=== PATIENT | female | born 1980 | race Caucasian/White ===

== ENCOUNTER 2021-01-23 17:50 | Emergency (ER) | payer OTHER, SELFPAY ==
--- NOTE | ~2021-01-23 | CT_ITS ---
EXAMINATION: CT ABDOMEN AND PELVIS WITHOUT CONTRAST CLINICAL INFORMATION: Right flank pain COMPARISON: None TECHNIQUE: Multidetector volumetric imaging was performed from the superior aspect of the liver through the pubic symphysis. Sagittal and coronal reformatted images were obtained on the technologist's workstation. This CT examination was performed using dose optimization techniques as appropriate, variously including the following: *Automated exposure control *Adjustment of mA and/or kV according to patient size (this includes techniques or standardized protocols for targeted exams where dose is matched to indication/reason for exam; i.e. extremities or head) *Use of iterative reconstruction technique DLP: 382 mGy-cm FINDINGS: LUNG BASES: There is platelike atelectasis in the lingula LIVER, GALLBLADDER, AND BILIARY TREE: The liver is normal in size, shape, and attenuation. No focal hepatic lesion or biliary ductal dilatation is present. The gallbladder is unremarkable with no evidence of radiopaque gallstones, gallbladder wall thickening, or obvious pericholecystic inflammatory changes. PANCREAS: Unremarkable. SPLEEN: Unremarkable. ADRENAL GLANDS: Unremarkable. KIDNEYS AND URETERS: The kidneys are normal in size, shape, and attenuation. No hydronephrosis, hydroureter, or calculi seen. No perinephric stranding. BLADDER: Unremarkable. GASTROINTESTINAL TRACT: There is scattered stool and gas seen throughout the colon without significant distention. The small bowel loops are normal caliber. Appendix is not visualized. However there is no inflammatory process in the right lower quadrant. ABDOMINAL WALL: No significant hernia is appreciated. LYMPH NODES: Normal. VASCULAR: Unremarkable. PELVIC VISCERA: The uterus is anteverted and appears unremarkable. There is no free fluid. No pelvic mass or lymphadenopathy seen. OSSEOUS STRUCTURES: Unremarkable. CT/CT abdomen pelvis wo con IMPRESSION: No acute intra-abdominal process seen. Mild constipation.
[2021-01-23 17:53] VITALS: BP 133/74; PULSE 93; RESP 16; TEMP 35.7; O2SAT 97; BMI 24.0
[2021-01-23 18:08] LABS: MANUAL DIFF FLAG NO
[2021-01-23 18:11] LABS: Basophils Absolute Auto 0.1 X10*3/uL (0.0-0.2); Basophils Percent Auto 0.5 % (0-2); Eosinophils Absolute Auto 0.2 X10*3/uL (0.0-0.4); Eosinophils Percent Auto 1.9 % (0-4); Hematocrit 38.3 % (37-47); Hemoglobin 12.8 g/dl (12.0-16.0); Imm Gran Abs Auto 0.02 X10*3/uL (0.00-0.03); Imm Gran Pct Auto 0.2 % (0.0-0.4); Lymphocytes Absolute Auto 2.9 X10*3/uL (1.2-4.9); Lymphocytes Percent Auto 29.3 % (20-40); Mean Corpuscular HGB Conc 33.4 g/dl (31.0-35.0); Mean Corpuscular Hemoglobin 32.7 pg (27.0-33.0); Mean Platelet Volume 9.2 fL (9.4-12.3); Monocytes Absolute Auto 0.5 X10*3/uL (0.1-1.2); Monocytes Percent Auto 4.5 % (2-11); Neutrophils Absolute Auto 6.3 X10*3/uL (2.0-8.3); Neutrophils Percent Auto 63.6 % (45-73); Platelet Count 327 X10*3/uL (160-400); Red Blood Count 3.91 X10*6/uL (4.20-5.50); Red Cell Distribution Width 12.5 % (11.0-16.0); White Blood Count 9.9 X10*3/uL (4.8-10.8)
[2021-01-23 18:20] LABS: Glucose Urine UA NEG (NEG); Leukocyte Esterase Urine NEG (NEG); Nitrite Urine NEG (NEG); Urine Blood NEG (NEG); Urine Ketones NEG (NEG); Urine Protein NEG (NEG-TRACE)
[2021-01-23 18:21] LABS: Appearance Urine CLOUDY; Color Urine YELLOW
[2021-01-23 18:38] LABS: Anion Gap 13 (12-20); Blood Urea Nitrogen 12 mg/dL (9-16); Calcium 9.1 mg/dL (8.4-10.2); Carbon Dioxide 26 mmol/L (22-29); Chloride 108 mmol/L (96-108); Creatinine Clr Calc Pharmacy 75.9; Estimated Glomerular Filt Rate > 60; Glucose Random 79 mg/dL (60-115); Potassium 3.5 mmol/L (3.3-5.1); Sodium 143 mmol/L (135-145)
[2021-01-23 19:39] LABS: Bacteria Urine 2+ /LPF; Mucus Urine 1+ /LPF; RBC Urine 0 /HPF (0); Squamous Epithelial Cell Urine 1+ /LPF; UACC CULT YES
--- NOTE | 2021-01-23 20:46 | ED_ITS ---
HPI - Abdominal Pain General Chief Complaint: Abdominal Pain Stated Complaint: R lower abd pain and back pain Time Seen by Provider: 01/23/21 20:44 Source: patient Mode of arrival: ambulatory Limitations: no limitations History of Present Illness MD elicited complaint: abdominal pain and flank pain Onset (ago): day(s) (2) Pain Consistency: constant Location: RLQ and R flank Severity: moderate Quality: stabbing Radiation: none Migration to: RLQ Exacerbating factors: movement Relieving factors: nothing Associated symptoms: other (urinary hesitancy) Related Data Home Medications Medication Instructions Recorded Confirmed norethindrone-e.estradiol-iron 1 tab PO DAILY 01/23/21 01/23/21 [Tilia Fe] Allergies Allergy/AdvReac Type Severity Reaction Status Date / Time acetaminophen [From PERCOCET] Allergy Intermediate HIVES Verified 01/23/21 21:24 oxycodone [Percocet] Allergy Unknown Unknown Verified 01/23/21 21:24 From PERCOCET Allergy Intermediate HIVES Uncoded 01/23/21 21:24 Review of Systems Review of Systems Constitutional : No Weight loss, No Fever, No Chills ENT/Mouth : No sore throat, No Rhinorrhea Eyes: No Swelling, No Redness Cardiovascular : No Chest Pain, No SOB, NoEdema Respiratory : No Cough, No Sputum, No Wheezing Gastrointestinal : no Nausea, no Vomiting, no Diarrhea, positive abdominal Pain, No Hematochezia, No Melena Genitourinary : No Dysuria, No Urinary Frequency, No Hematuria, No Urgency, pos hesitancy Musculoskeletal : No joint pain, No Myalgias, No Joint Swelling Skin : No Skin Lesions, No rash Neuro : No Weakness, No Numbness, No Dizziness, No Headache Psych : No Anxiety/Panic, No Depression Heme/Lymph: No Bruising, No Lymphadenopathy Endocrine : No Polyuria, No Polydipsia All other systems reviewed and are negative. Physical Exam Vital Signs: Vital Signs: Last Vital Signs Temp 96.3 F L 01/23/21 21:17 Pulse 93 01/23/21 21:17 Resp 16 01/23/21 21:17 BP 133/74 01/23/21 21:17 Pulse Ox 97 01/23/21 21:17 Body Mass Index 24.0 Appearance: Alert. Oriented X3. No acute distress. Eyes: Pupils equal, round and reactive to light. ENT: Pharynx normal. Neck: Normal inspection. Neck supple. CVS: Normal heart rate and rhythm. Pulses normal. Respiratory: No respiratory distress. Breath sounds normal. Abdomen: Soft and mild RLQ pain + R cva ttp Skin: Skin warm and dry. Normal skin color. Normal skin turgor. Extremities: No lower extremity edema. No calf ttp Neuro: Oriented X 3. No motor deficit. No sensory deficit. Course Course Course Narrative: signed out to Dr. Ramirez pending CT scan and workup MDM - Abdominal Pain MDM Narrative Medical decision making narrative: 40 yo female with RLQ pain and R flank pain already s/p appendectomy - at this time labs, UA, IV toradol, CT scan for renal colic orrdered, dispo per results and findings, Differential Diagnosis Differential diagnosis: Likely abdominal pain Lab Data Result diagrams: 01/23/21 18:01/23/21 18:01 Labs: Lab Results 01/23/21 01/23/21 01/23/21 Range/Units 18:01 18:01 18:11 WBC 9.9 (4.8-10.8) X10*3/uL RBC 3.91 L (4.20-5.50) X10*6/uL Hgb 12.8 (12.0-16.0) g/dl Hct 38.3 (37-47) % MCV 98.0 (80-98) fL MCH 32.7 (27.0-33.0) pg MCHC 33.4 (31.0-35.0) g/dl RDW 12.5 (11.0-16.0) % Plt Count 327 (160-400) X10*3/uL MPV 9.2 L (9.4-12.3) fL Immature Gran % (Auto) 0.2 (0.0-0.4) % Neut % (Auto) 63.6 (45-73) % Lymph % (Auto) 29.3 (20-40) % Bowman % (Auto) 4.5 (2-11) % Eos % (Auto) 1.9 (0-4) % Baso % (Auto) 0.5 (0-2) % Lymph # (Auto) 2.9 (1.2-4.9) X10*3/uL Bowman # (Auto) 0.5 (0.1-1.2) X10*3/uL Eos # (Auto) 0.2 (0.0-0.4) X10*3/uL Baso # (Auto) 0.1 (0.0-0.2) X10*3/uL Abs Immat Gran (auto) 0.02 (0.00-0.03) X10*3/uL Absolute Neuts (auto) 6.3 (2.0-8.3) X10*3/uL Absolute Nucleated RBC 0.000 (0.0-0.012) X10*3/uL Nucleated RBC % (auto) 0.0 (0.0-0.2) /100WBC Sodium 143 (135-145) mmol/L Potassium 3.5 (3.3-5.1) mmol/L Chloride 108 (96-108) mmol/L Carbon Dioxide 26 (22-29) mmol/L Anion Gap 13 (12-20) BUN 12 (9-16) mg/dL Creatinine 0.85 (0.5-1.4) mg/dL Estim Creat Clear Calc 75.9 Estimated GFR > 60 Random Glucose 79 (60-115) mg/dL Calcium 9.1 (8.4-10.2) mg/dL Urine Color YELLOW Urine Appearance CLOUDY Urine pH 8.0 (5.0-8.0) Ur Specific [place] 1.020 (1.005-1.025) Urine Protein NEG (NEG-TRACE) MG/DL Urine Glucose (UA) NEG (NEG) MG/DL Urine Ketones NEG (NEG) MG/DL Urine Blood NEG (NEG) Urine Nitrite NEG (NEG) Ur Leukocyte Esterase NEG (NEG) Urine RBC 0 (0) /HPF Urine WBC 5-9 H (0-4) /HPF Ur Squamous Epith Cells 1+ /LPF Urine Bacteria 2+ /LPF Urine Mucus 1+ /LPF Discharge Plan Discharge Prescriptions: No Action Tilia Fe 1-20(5)/1-30(7) /1mg-35mcg (9) tablet 1 tab PO DAILY RF: 0 PMFSH Past Medical History Attestation statement: The following information was validated with the patient. Medical History No active medical problems Surgical History (Updated 01/23/21 @ 21:27 by Padma Barrera DO) History of appendectomy Social History Social History Alcohol intake: current Alcohol intake frequency: holidays/special occasions on ly Smoking Status: Never smoker Use of substances other than those prescribed or required for medical reasons: Yes Substance Use Type: Hallucinogens and Marijuana Substance Use Frequency: Occasionally Last Used Substance: Unknown Advance Directives: No Advance Directives Information Provided: Yes Patient : No
[2021-01-23 21:17] VITALS: BP 133/74; PULSE 93; RESP 16; TEMP 35.7; O2SAT 97
[2021-01-23] MEDS: Ketorolac Tromethamine 30 MG/ML VIAL IVPUSH (21:27)
[2021-01-23] MEDS: Dicyclomine HCl 10 MG CAPSULE 20 MG PO (23:00)
== END 2021-01-23 22:58 | disposition home or self-care (01) ==
PROVIDERS: Emergency Provider Emergency Medicine
DX: R10.31 Right lower quadrant pain (principal); R11.2 Nausea with vomiting, unspecified; F32.9 Major depressive disorder, single episode, unspecified; F12.90 Cannabis use, unspecified, uncomplicated
CPT/HCPCS: 36415; 74176; 80048; 81001; 85025; 87086; 96374; 99284; 99285; J1885

== ENCOUNTER 2021-12-30 20:03 | Emergency (ER) | payer OTHER, SELFPAY ==
--- NOTE | ~2021-12-30 | XR_ITS ---
EXAMINATION: XR RIBS, RIGHT CLINICAL INFORMATION: Trauma COMPARISON: None TECHNIQUE: Frontal view of the chest and 3 oblique views of the right ribs were obtained. FINDINGS: Lungs are clear. No consolidation, pneumothorax, or pleural effusion. The cardiomediastinal silhouette and pulmonary vasculature are normal. On one oblique view, there is a suggestion of a very subtle nondisplaced fracture of the anterior right ninth rib. This is not able to be appreciated on the other obliquities. XR/XR ribs RT min 3V w CXR1V IMPRESSION: On one oblique view there is a suggestion of a subtle nondisplaced fracture of the anterior right ninth rib. This could be clinically correlated.
--- NOTE | ~2021-12-30 | CT_ITS ---
EXAMINATION: CT CHEST WITHOUT CONTRAST CLINICAL INFORMATION: Right-sided chest pain following trauma. COMPARISON: Right rib radiographs done earlier the same day. TECHNIQUE: Multidetector volumetric CT imaging of the chest was done. Axial MIP volume rendering provided. Sagittal and coronal reformatted images were obtained. This CT examination was performed using dose optimization techniques as appropriate, variously including the following: *Automated exposure control. *Adjustment of mA and/or kV according to patient size (this includes techniques or standardized protocols for targeted exams where dose is matched to indication/reason for exam; i.e. extremities or head). *Use of iterative reconstruction technique. DLP: 221 mGy-cm FINDINGS: TOP PRECIPITATOR OPERATOR HELPER: Unremarkable. LUNGS: There is a 0.2 cm noncalcified nodule within the right upper lobe (axial image 237/580). There is a 0.2 cm subpleural nodule along the right major fissure (axial image 235/580). There is a 0.3 cm subpleural nodule along the left major fissure (axial image 280/480). There is a 0.5 cm subpleural nodule along the left major fissure (axial image 224/580). There are a few additional 0.2 cm nodules. No large pulmonary mass or confluent airspace consolidation. The central airways are patent. MEDIASTINUM: The mediastinum is normal. PLEURA: There is no pleural effusion. No pleural mass or thickening. AXILLA: No lymphadenopathy. UPPER ABDOMEN: Unremarkable. OSSEOUS STRUCTURES: There is a subtle, nondisplaced anterior right 9th rib fracture (axial image 58/70, series 9). No additional fracture. No concerning lytic or blastic osseous lesion. CT/CT chest wo con IMPRESSION: 1. Subtle, nondisplaced anterior right 9th rib fracture. No additional fracture. 2. Multiple small bilateral noncalcified pulmonary nodules measuring up to 0.5 cm. According to the UPDATED 2017 Fleischner Society recommendations, the advised follow-up imaging for solid nodules < 6 mm is: LOW RISK PATIENT: No routine follow-up. HIGH RISK PATIENT: Optional CT at 12 months. Fleischner guidelines were followed.
[2021-12-30 20:33] VITALS: BP 133/66; PULSE 90; RESP 16; TEMP 36.6; O2SAT 100; BMI 24.7
[2021-12-30 21:57] LABS: UPreg QC Valid YES; Urine Pregnancy NEGATIVE (NEGATIVE)
[2021-12-30] MEDS: Lidocaine 4 % Patch ADH..PATCH 1 PATCH TRANSDERMA (22:36)
[2021-12-30] MEDS: Ketorolac Tromethamine 15 MG/ML VIAL IM (22:36)
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
[2021-12-30 23:23] VITALS: BP 111/70; PULSE 69; RESP 17; O2SAT 100
== END 2021-12-30 23:29 | disposition home or self-care (01) ==
PROVIDERS: Emergency Provider Student in an Organized Health Care Education/Training Program; PCP Internal Medicine
DX: S22.31XA Fracture of one rib, right side, initial encounter for closed fracture (principal); R07.89 Other chest pain; W03.XXXA Other fall on same level due to collision with another person, initial encounter; Y93.51 Activity, roller skating (inline) and skateboarding; Y92.9 Unspecified place or not applicable; Y99.9 Unspecified external cause status
CPT/HCPCS: 71101; 71250; 81025; 96372; 99283; 99284; J1885

== ENCOUNTER 2022-05-03 16:43 | Outpatient (REF) | payer OTHER, SELFPAY ==
[2022-05-03 17:33] LABS: Influenza A PCR NEGATIVE (Negative); Influenza B PCR NEGATIVE (Negative); Resp Syncy Virus RNA Qual PCR NEGATIVE (Negative); SARS COV2 PCR INHOUSE NEGATIVE (Negative)
== END 2022-05-03 16:44 | disposition home or self-care (01) ==
LOC: HO.LNP 16:43
DX: R53.81 Other malaise (principal); R53.83 Other fatigue; Z20.822 Contact with and (suspected) exposure to COVID-19
CPT/HCPCS: 0241U

== ENCOUNTER 2023-04-06 10:48 | Emergency (ER) | payer OTHER, SELFPAY ==
[2023-04-06 10:52] VITALS: BP 119/81; PULSE 90; RESP 18; TEMP 36.4; O2SAT 97; BMI 23.7
[2023-04-06 11:40] LABS: MANUAL DIFF FLAG NO
[2023-04-06] MEDS: Ondansetron ODT 4 MG TAB.RAPDIS TRANSLINGU (11:48)
[2023-04-06 11:55] LABS: Basophils Absolute Auto 0.1 X10*3/uL (0.0-0.2); Basophils Percent Auto 0.5 % (0-2); Eosinophils Absolute Auto 0.1 X10*3/uL (0.0-0.4); Eosinophils Percent Auto 0.5 % (0-4); Hematocrit 39.3 % (37.0-47.0); Hemoglobin 13.2 g/dl (12.0-16.0); Imm Gran Abs Auto 0.02 X10*3/uL (0.00-0.03); Imm Gran Pct Auto 0.2 % (0.0-0.4); Lymphocytes Absolute Auto 2.6 X10*3/uL (1.2-4.9); Lymphocytes Percent Auto 24.7 % (20-40); Mean Corpuscular HGB Conc 33.6 g/dl (31.0-35.0); Mean Corpuscular Hemoglobin 32.8 pg (27.0-33.0); Mean Corpuscular Volume 97.5 fL (80.0-98.0); Mean Platelet Volume 9.2 fL (9.4-12.3); Monocytes Absolute Auto 0.4 X10*3/uL (0.1-1.2); Monocytes Percent Auto 3.7 % (2-11); Neutrophils Absolute Auto 7.5 x10*3/uL (2.0-8.3); Neutrophils Percent Auto 70.4 % (45-73); Platelet Count 296 X10*3/uL (160-400); Red Blood Count 4.03 X10*6/uL (4.20-5.50); Red Cell Distribution Width 11.8 % (11.0-16.0); White Blood Count 10.7 X10*3/uL (4.8-10.8)
[2023-04-06 12:00] LABS: Appearance Urine Clear; Color Urine Yellow; Glucose Urine UA Negative (Negative); Leukocyte Esterase Urine Negative (Negative); Nitrite Urine Negative (Negative); Urine Blood Negative (Negative); Urine Ketones Negative (Negative); Urine Protein Negative (Neg-Trace)
[2023-04-06 12:00] LABS: Alanine Aminotransferase 15 U/L (0-31); Albumin Level 4.4 g/dL (3.5-5.0); Alkaline Phosphatase 33 U/L (39-117); Anion Gap 17 (12-20); Aspartate Amino Transferase 16 U/L (5-31); Bilirubin Total 0.3 mg/dL (0.0-1.0); Blood Urea Nitrogen 10 mg/dL (9-16); Calcium 9.1 mg/dL (8.4-10.2); Carbon Dioxide 19 mmol/L (22-29); Chloride 108 mmol/L (96-108); Creatinine Clr Calc Pharmacy 79.2; Estimated Glomerular Filt Rate > 60; Ethanol 101 mg/dL; Glucose Random 107 mg/dL (60-115); Potassium 3.7 mmol/L (3.3-5.1); Sodium 140 mmol/L (135-145); Total Protein 7.2 g/dL (6.5-8.0)
[2023-04-06 12:03] LABS: UPreg QC Valid YES; Urine Pregnancy NEGATIVE (NEGATIVE)
--- NOTE | 2023-04-06 12:04 | ED.GENADULT ---
HPI - General Adult General Chief complaint: Psychiatric Symptoms Stated complaint: crisis si thoughts Time Seen by Provider: 04/06/23 11:00 Source: patient and EMS Mode of arrival: EMS Limitations: no limitations History of Present Illness HPI narrative: 43-year-old female presents with psychological issues. Patient had some suicidal ideation no plan yesterday. Today she feels overwhelmed. Her son is homeless a non drugs. She is certainly concerned about him. She feels overwhelmed at work. Associated with anxiety and depression. Symptoms are severe. There is no clear relieving or exacerbating features. Patient drink a significant amount of alcohol last night. Typically she does not do any drugs, drink alcohol. patient denies previous psychiatric hospitalizations. Related Data Home Medications Medication Instructions Recorded Confirmed norethindrone-eth. estradiol-iron 1 tab PO DAILY 01/23/21 05/03/22 1-20 (5)/1-30(7)/1mg-35mcg(9) tablet (Tilia Fe) Previous Rx's Medication Instructions Recorded dicyclomine 20 mg tablet 20 mg PO QID PRN abdominal pain 01/23/21 #20 tabs ketorolac 10 mg tablet 10 mg PO Q6H PRN pain 5 days #20 12/30/21 tabs Allergies Allergy/AdvReac Type Severity Reaction Status Date / Time oxycodone Allergy Hives Verified 04/06/23 10:56 Review of Systems Review of Systems: CONSTITUTIONAL: Denies weight loss, fever and chills. HEENT: Denies changes in vision and hearing. RESPIRATORY: Denies SOB and cough. CV: Denies palpitations no CP. GI: Denies abdominal pain, nausea, vomiting and diarrhea. : Denies dysuria and urinary frequency. MSK: Denies myalgia and joint pain. SKIN: Denies rash and pruritus. NEUROLOGICAL: Denies headache and syncope. PSYCHIATRIC: See HPI All other ROS are negative unless in HPI PMFSH Past Medical History Medical History Fatigue No active medical problems Surgical History History of appendectomy Social History Social History Alcohol intake: current Alcohol intake frequency: holidays/special occasions only Substance Use Type: Hallucinogens and Marijuana Advance Directives: No Advance Directives Information Provided: No Healthcare Proxy: No Guardian: No Physical Exam ED Vital Signs: Vital Signs - 24 hr 04/06/23 10:52 Temperature 97.6 F Pulse Rate 90 Respiratory Rate 18 Blood Pressure 119/81 Pulse Oximetry 97 Oxygen Delivery Method Room Air BMI result Body Mass Index 23.7 GEN: Well developed, no acute distress, alert, oriented HEENT: Normocephalic, atraumatic, normal external ears, nose appears normal, no oropharyngeal edema or exudates Eyes: Normal to appearance Neck: Supple, no lymphadenopathy Respiratory: Talks in complete sentences, no respiratory distress, clear to auscultation bilaterally Cardiovascular: Regular rate and rhythm, no murmurs rubs or gallops Abdomen: Soft, nontender, nondistended, no guarding, no rebound Back: No CVA tenderness Extremities: No clubbing cyanosis or edema Neurologic: No focal neurologic deficits, cranial nerves 2-12 intact, strength is 5/5 bilaterally Skin: No rash Course Reevaluation(s) Reevaluation #1: patient is medically clear for psychiatric evaluation. Will place patient in physician observation at this time. Time: 12:07 Reevaluation #2: patient to go to respite care Time: 14:02 Reevaluation #3: Patient will be signed out to the oncoming provider for o'clock. Disposition pending bed placement for respite care. Time: 16:12 Medications Administered Discontinued Medications Generic Name Dose Route Start Last Admin Trade Name Freq PRN Reason Stop Dose Admin Hydroxyzine HCl 25 mg 04/06/23 12:16 04/06/23 12:24 Hydroxyzine Hcl 25 Mg Tablet PO 04/06/23 12:17 25 mg ONCE ONE Administration Ondansetron HCl 4 mg 04/06/23 11:45 04/06/23 11:48 Ondansetron Odt 4 Mg Tab.Rapdis TRANSLINGU 04/06/23 11:46 4 mg ONCE ONE Administration Medical Decision Making Medical Decision Making MDM Narrative: Patient presents with psychological issues. Differential diagnosis includes diet depression, anxiety, bipolar disorder, mood disorder, stew stress reactions, adjustment reaction. Plan will be to medically clear the patient and have her evaluated by our care team. Differential Diagnosis Differential Diagnoses: The differential diagnosis associated with the presentation includes ( See above) Admission/Observation Consideration of admission/observation: Escalation of care including admission/observation considered Lab Data 04/06/23 11:35 04/06/23 11:35 Labs: Lab Results 04/06/23 04/06/23 04/06/23 Range/Units 11:35 11:35 11:35 WBC 10.7 (4.8-10.8) X10*3/uL RBC 4.03 L (4.20-5.50) X10*6/uL Hgb 13.2 (12.0-16.0) g/dl Hct 39.3 (37.0-47.0) % MCV 97.5 (80.0-98.0) fL MCH 32.8 (27.0-33.0) pg MCHC 33.6 (31.0-35.0) g/dl RDW 11.8 (11.0-16.0) % Plt Count 296 (160-400) X10*3/uL MPV 9.2 L (9.4-12.3) fL Immature Gran % (Auto) 0.2 (0.0-0.4) % Neut % (Auto) 70.4 (45-73) % Lymph % (Auto) 24.7 (20-40) % Reeves % (Auto) 3.7 (2-11) % Eos % (Auto) 0.5 (0-4) % Baso % (Auto) 0.5 (0-2) % Lymph # (Auto) 2.6 (1.2-4.9) X10*3/uL Reeves # (Auto) 0.4 (0.1-1.2) X10*3/uL Eos # (Auto) 0.1 (0.0-0.4) X10*3/uL Baso # (Auto) 0.1 (0.0-0.2) X10*3/uL Abs Immat Gran (auto) 0.02 (0.00-0.03) X10*3/uL Absolute Neuts (auto) 7.5 (2.0-8.3) x10*3/uL Absolute Nucleated RBC 0.000 (0.0-0.012) X10*3/uL Nucleated RBC % (auto) 0.0 (0.0-0.2) /100WBC Sodium 140 (135-145) mmol/L Potassium 3.7 (3.3-5.1) mmol/L Chloride 108 (96-108) mmol/L Carbon Dioxide 19 L (22-29) mmol/L Anion Gap 17 (12-20) BUN 10 (9-16) mg/dL Creatinine 0.79 (0.5-1.4) mg/dL Estim Creat Clear Calc 79.2 Estimated GFR > 60 Random Glucose 107 (60-115) mg/dL Calcium 9.1 (8.4-10.2) mg/dL Total Bilirubin 0.3 (0.0-1.0) mg/dL AST 16 (5-31) U/L ALT 15 (0-31) U/L Alkaline Phosphatase 33 L (39-117) U/L Total Protein 7.2 (6.5-8.0) g/dL Albumin 4.4 (3.5-5.0) g/dL Urine Color Urine Appearance Urine pH (5.0-9.0) Ur Specific [place] (1.005-1.025) Urine Protein (Neg-Trace) mg/dL Urine Glucose (UA) (Negative) mg/dL Urine Ketones (Negative) mg/dL Urine Blood (Negative) Urine Nitrite (Negative) Ur Leukocyte Esterase (Negative) Urine Test (NEGATIVE) Urine Opiates Screen (Not Detect) Urine Fentanyl Screen (Not Detect) Ur Barbiturates Screen (Not Detect) Ur Phencyclidine Scrn (Not Detect) Ur Amphetamines Screen (Not Detect) U Benzodiazepines Scrn (Not Detect) Urine Cocaine Screen (Not Detect) U Marijuana (THC) Screen (Not Detect) Ethyl Alcohol 101 mg/dL COVID-19 (JAS) Negative (Negative) COVID-19 Clin Com See Note 04/06/23 04/06/23 04/06/23 Range/Units 11:35 11:36 11:36 WBC (4.8-10.8) X10*3/uL RBC (4.20-5.50) X10*6/uL Hgb (12.0-16.0) g/dl Hct (37.0-47.0) % MCV (80.0-98.0) fL MCH (27.0-33.0) pg MCHC (31.0-35.0) g/dl RDW (11.0-16.0) % Plt Count (160-400) X10*3/uL MPV (9.4-12.3) fL Immature Gran % (Auto) (0.0-0.4) % Neut % (Auto) (45-73) % Lymph % (Auto) (20-40) % Reeves % (Auto) (2-11) % Eos % (Auto) (0-4) % Baso % (Auto) (0-2) % Lymph # (Auto) (1.2-4.9) X10*3/uL Reeves # (Auto) (0.1-1.2) X10*3/uL Eos # (Auto) (0.0-0.4) X10*3/uL Baso # (Auto) (0.0-0.2) X10*3/uL Abs Immat Gran (auto) (0.00-0.03) X10*3/uL Absolute Neuts (auto) (2.0-8.3) x10*3/uL Absolute Nucleated RBC (0.0-0.012) X10*3/uL Nucleated RBC % (auto) (0.0-0.2) /100WBC Sodium (135-145) mmol/L Potassium (3.3-5.1) mmol/L Chloride (96-108) mmol/L Carbon Dioxide (22-29) mmol/L Anion Gap (12-20) BUN (9-16) mg/dL Creatinine (0.5-1.4) mg/dL Estim Creat Clear Calc Estimated GFR Random Glucose (60-115) mg/dL Calcium (8.4-10.2) mg/dL Total Bilirubin (0.0-1.0) mg/dL AST (5-31) U/L ALT (0-31) U/L Alkaline Phosphatase (39-117) U/L Total Protein (6.5-8.0) g/dL Albumin (3.5-5.0) g/dL Urine Color Yellow Urine Appearance Clear Urine pH 6.0 (5.0-9.0) Ur Specific [place] 1.020 (1.005-1.025) Urine Protein Negative (Neg-Trace) mg/dL Urine Glucose (UA) Negative (Negative) mg/dL Urine Ketones Negative (Negative) mg/dL Urine Blood Negative (Negative) Urine Nitrite Negative (Negative) Ur Leukocyte Esterase Negative (Negative) Urine Test NEGATIVE (NEGATIVE) Urine Opiates Screen Not Detected (Not Detect) Urine Fentanyl Screen Not Detected (Not Detect) Ur Barbiturates Screen Not Detected (Not Detect) Ur Phencyclidine Scrn Not Detected (Not Detect) Ur Amphetamines Screen Not Detected (Not Detect) U Benzodiazepines Scrn Not Detected (Not Detect) Urine Cocaine Screen Not Detected (Not Detect) U Marijuana (THC) Screen Not Detected (Not Detect) Ethyl Alcohol mg/dL COVID-19 (JAS) (Negative) COVID-19 Clin Com Discharge Plan Discharge Clinical Impression: Acute stress reaction Patient Disposition: Still a Patient Prescriptions: No Action Tilia Fe 1-20(5)/1-30(7) /1mg-35mcg (9) tablet 1 tab PO DAILY dicyclomine 20 mg tablet 20 mg PO QID PRN (Reason: abdominal pain) Qty: 20 0RF ketorolac 10 mg tablet 10 mg PO Q6H PRN (Reason: pain) 5 Days Qty: 20 0RF Rx Instructions: Patient received Toradol in the emergency room
[2023-04-06 12:08] LABS: Amphetamine Screen Urine Not Detected (Not Detect); Barbiturates, Urine Not Detected (Not Detect); Benzodiazepines Screen Urine Not Detected (Not Detect); Cannabinoid Screen Urine Not Detected (Not Detect); Cocaine Screen Urine Not Detected (Not Detect); Fentanyl, urine Not Detected (Not Detect); Opiate Screen Urine Not Detected (Not Detect); Phencyclidine Screen Urine Not Detected (Not Detect)
[2023-04-06 12:14] LABS: COVID-19 Test Negative (Negative); IDNOW Serial# 08D9AD1C
[2023-04-06] MEDS: hydrOXYzine HCL 25 MG TABLET PO (12:24)
--- NOTE | 2023-04-06 12:45 | PC.NURSE ---
CARE TEAM AT THE BEDSIDE FOR ASSESSMENT. SHE WAS MEDICATED FOR STATED ANXIETY
--- NOTE | 2023-04-06 16:00 | MHC.CARE ---
Pt referred to [facility] respite. Pending review
[2023-04-06] MEDS: Acetaminophen 325 MG TABLET 650 MG PO (16:40)
[2023-04-06 16:41] VITALS: BP 128/76; PULSE 84; RESP 17; TEMP 36.2; O2SAT 100
[2023-04-06] MEDS: Ibuprofen 400 MG TABLET PO (16:41)
--- NOTE | 2023-04-06 16:42 | MHC.EDTECH ---
vs taken. pt provided with warm blanket, crackers, and barry jeannine
--- NOTE | 2023-04-06 17:35 | PC.NURSE ---
RESPITE BED IN [facility] WAS OBTAINED BY CARE TEAM, PT CLEARED TO TRANSPORT HERSELF.
== END 2023-04-06 17:40 ==
PROVIDERS: Emergency Medicine; Emergency Provider Emergency Medicine
DX: F43.0 Acute stress reaction (principal); R45.851 Suicidal ideations; F41.9 Anxiety disorder, unspecified; F32.A Depression, unspecified; F12.90 Cannabis use, unspecified, uncomplicated; Z79.899 Other long term (current) drug therapy; Z20.822 Contact with and (suspected) exposure to COVID-19
CPT/HCPCS: 80053; 80307; 81003; 81025; 85025; 87635; 99284; 99285; S9485

== ENCOUNTER 2023-08-25 00:37 | Emergency (ER) | payer OTHER, SELFPAY ==
--- NOTE | ~2023-08-25 | XR_ITS ---
EXAMINATION: XR FACIAL BONES CLINICAL INFORMATION: Injury COMPARISON: None available. TECHNIQUE: 3 views of the facial bones were obtained. FINDINGS: There are no fractures or dislocations. No bone, joint or soft tissue abnormality is demonstrated. XR/XR facial bones min 3V IMPRESSION: No acute fractures.
--- NOTE | ~2023-08-25 | CT_ITS ---
EXAMINATION: NONCONTRAST HEAD CT NONCONTRAST MAXILLOFACIAL CT NONCONTRAST CERVICAL SPINE CT INDICATION INFORMATION: Trauma COMPARISON: None TECHNIQUE: Separate noncontrast CT examinations of the head, maxillofacial bones, and cervical spine were performed. Coronal and sagittal images were created for each examination at the technologist workstation. This CT examination was performed using dose optimization techniques as appropriate, variously including the following: *Automated exposure control *Adjustment of mA and/or kV according to patient size (this includes techniques or standardized protocols for targeted exams where dose is matched to indication/reason for exam; i.e. extremities or head) *Use of iterative reconstruction technique DLP: 1055 mGy-cm FINDINGS: Head: There is no evidence of acute intracranial hemorrhage or territorial infarction. No abnormal mass effect or midline shift is seen. De La Cruz to white matter differentiation is well preserved. No extra-axial fluid collections are identified. No hydrocephalus. No significant volume loss. There is no abnormal attenuation within the brain parenchyma. No acute soft tissue abnormality. No calvarial fracture. The mastoid air cells are well aerated. Maxillofacial: No acute maxillofacial fractures are seen. The pterygoid plates are intact. The lamina papyracea are intact. The zygomatic arches are intact. The orbital rims are intact. Mandible and temporomandibular joints are intact. The frontal, maxillary, ethmoid, and sphenoid sinuses are well aerated. The uncinate process is normal bilaterally. The infundibula and middle meati are patent. Small leftward projecting osseous nasal septal spur. Minimal leftward osseous nasal septal deviation on a chronic basis. The orbits demonstrate a normal appearance bilaterally. The globes are intact, and there are no suspicious findings to suggest retrobulbar hemorrhage. Soft tissues unremarkable. Cervical spine: No acute fracture or traumatic malalignment. Mild cervical kyphosis. The atlantoaxial and atlantooccipital articulations are intact. Vertebral body heights are maintained. End plate osteophytes and loss of disc space height present from C3-C6. Paraspinal soft tissues unremarkable. Imaged lungs are clear. The thyroid gland is unremarkable. CT/CT cervical spine wo IV con IMPRESSION: 1. No acute intracranial findings. 2. No acute maxillofacial fracture. 3. No acute fracture or malalignment of the cervical spine.
[2023-08-25 00:39] VITALS: BP 135/84; PULSE 73; RESP 18; TEMP 36.3; O2SAT 100; BMI 25.4
[2023-08-25 01:09] VITALS: BP 131/77; PULSE 66; RESP 18; TEMP 36.8; O2SAT 100
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
[2023-08-25 02:49] VITALS: BP 119/63; PULSE 71; RESP 16; TEMP 36.7; O2SAT 100
== END 2023-08-25 02:59 | disposition home or self-care (01) ==
PROVIDERS: Emergency Provider Emergency Medicine; PCP Physician Assistant
DX: S00.83XA Contusion of other part of head, initial encounter (principal); M54.2 Cervicalgia; W03.XXXA Other fall on same level due to collision with another person, initial encounter; Y93.9 Activity, unspecified; Y92.9 Unspecified place or not applicable; Y99.9 Unspecified external cause status
CPT/HCPCS: 70150; 70450; 70486; 72125; 99284

== ENCOUNTER 2024-12-11 04:43 | Emergency (ER) | payer OTHER, SELFPAY ==
--- NOTE | ~2024-12-11 | CT_ITS ---
CLINICAL HISTORY: headache CT head without contrast Comparison: CT/SR - CT HEAD/BRAIN WO IV CON - 08/25/23 01:30 EST Findings: No intra-axial mass, midline shift, hydrocephalus, or acute hemorrhage. No significant atrophy-like change or white matter disease. The visualized paranasal sinuses and mastoid air cells are normal. The orbits are within normal limits. There is no acute fracture. IMPRESSION: 1. No acute intracranial findings. This document has been electronically signed by: Ar Curry MD on 12/11/2024 06:35:58
[2024-12-11 04:47] VITALS: BP 123/78; PULSE 82; RESP 16; TEMP 36.2; O2SAT 99; BMI 24.7
[2024-12-11 07:14] VITALS: BP 141/80; PULSE 72; RESP 14; TEMP 37.1; O2SAT 99
[2024-12-11 07:29] LABS: MANUAL DIFF FLAG NO
[2024-12-11 07:32] LABS: Basophils Absolute Auto 0.1 X10*3/uL (0.0-0.2); Basophils Percent Auto 0.5 % (0-2); Eosinophils Absolute Auto 0.2 X10*3/uL (0.0-0.4); Eosinophils Percent Auto 1.7 % (0-4); Hematocrit 38.8 % (37.0-47.0); Hemoglobin 13.2 g/dl (12.0-16.0); Imm Gran Abs Auto 0.04 X10*3/uL (0.00-0.03); Imm Gran Pct Auto 0.4 % (0.0-0.4); Lymphocytes Absolute Auto 3.4 X10*3/uL (1.2-4.9); Lymphocytes Percent Auto 36.2 % (20-40); Mean Corpuscular Hemoglobin 32.4 pg (27.0-33.0); Mean Corpuscular Volume 95.3 fL (80.0-98.0); Monocytes Absolute Auto 0.6 X10*3/uL (0.1-1.2); Monocytes Percent Auto 5.9 % (2-11); Neutrophils Absolute Auto 5.2 x10*3/uL (2.0-8.3); Neutrophils Percent Auto 55.3 % (45-73); Platelet Count 340 X10*3/uL (160-400); Red Blood Count 4.07 X10*6/uL (4.20-5.50); Red Cell Distribution Width 12.2 % (11.0-16.0); White Blood Count 9.3 X10*3/uL (4.8-10.8)
[2024-12-11 07:50] LABS: Alanine Aminotransferase 16 U/L (0-31); Alkaline Phosphatase 45 U/L (39-117); Anion Gap 13 (12-20); Aspartate Amino Transferase 17 U/L (5-31); Bilirubin Total 0.2 mg/dL (0.0-1.0); Blood Urea Nitrogen 14 mg/dL (9-16); Calcium 9.1 mg/dL (8.4-10.2); Carbon Dioxide 23 mmol/L (22-29); Chloride 106 mmol/L (96-108); Creatinine Clr Calc Pharmacy 89.8; Estimated Glomerular Filt Rate > 60; Glucose Random 110 mg/dL (60-115); Sodium 138 mmol/L (135-145); Total Protein 6.9 g/dL (6.5-8.0)
--- OUTSIDE RECORDS SUMMARY | 2024-12-11 07:55 | XMS_ITS | Clinical Summary ---
Author Organization [facility] it Address [address] [place] [address] Care Team Providers Care Head Librarian Name Role Phone Akiko Guerra MD Primary Care Provider [phone] Allergies Active Allergy Reactions Criticality Noted Date Comments Oxycodone Dizziness 04/18/2016 Apap-Fd&C Red #40 Al Richards-Oxycodone Other Reaction(s): Hives/Urticaria Medications FLUoxetine (PROzac) 10 mg tablet Take 1 tablet (10 mg total) by mouth 1 (one) time each day. 05/13/2023 Active Active Problems Problem Noted Date Diagnosed Date Neck pain 08/20/2024 Anxiety 04/18/2016 Depression 04/18/2016 Encounters Date Type Department Care Team Description 11/20/2024 Telephone Adult Medicine [address] [phone] No Castillo RN 11/17/2024 Telephone Adult Medicine [address] [phone] Akiko Guerra MD Return to Work; Covid-19 from Last 3 Months Immunizations Name Administration Dates Next Due Moderna SARS-CoV-2 COVID-19, mRNA, LNP-S, preservative free 02/09/2022,01/12/2022 Tdap Tetanus diptheria acell ular pertussis (Boostrix; Adacel) 7yo and older 04/04/2022 Surgical History Surgery Date Site/Laterality Comments APPENDECTOMY 1985 PROCEDURE: HISTORICAL APPENDECTOMY SECTION 1998, 2012 PROCEDURE: HISTORICAL Medical History Medical History Date Comments Anxiety 04/18/2016 DX:Anxiety Depression 04/18/2016 DX:Depression Neck pain DX:Neck pain Family History Medical History Relation Name Comments Diabetes Father Colon cancer Maternal Grandfather Relation Name Status Comments Father Maternal Grandfather Social History Tobacco Use Types Packs/Day Years Used Date Smoking Tobacco: Some Days Cigarettes Smokeless Tobacco: Never Alcohol Use Standard Drinks/Week Comments Yes 0 (1 standard drink = 0.6 oz pur e alcohol) Comments Unknown Sex and Gender Information Value Date Recorded Sex Assigned at Not on file Legal Sex Female 1:45 PM EST Gender Identity Not on file Sexual Orientation Not on file Obstetrics History Last Filed Vital Signs Vital Sign Reading Time Taken Comments Blood Pressure 110/72 05/13/2023 3:48 PM EDT C Pulse 72 05/13/2023 3:48 PM EDT Temperature - - Respiratory Rate - - Oxygen Saturation - - Inhaled Oxygen Concentration - - Weight 64 kg (141 lb) 05/13/2023 3:48 PM EDT Height 162.6 cm (5' 4 ) 04/04/2022 11:21 AM EDT Body Mass Index 24.2 04/04/2022 11:21 AM EDT Plan of Treatment Upcoming Encounters Date Type Department Care Team (Late st Contact Info) Description 06/04/2025 9:00 AM EDT Office Visit Adult Medicine [facility] [address] [place] [phone] Akiko Guerra MD [address] [place] [address] Health Maintenance Due Date Last Done Comments Breast Cancer Screening 1980 Hepatitis B Vaccines (1 of 3 - 19+ 3-dose series) 02/04/1999 Pneumococcal Vaccine: Pediatrics (0 to 5 Years) and At-Risk Patients (6 to 64 Years) (1 of 2 - PCV) 02/04/1999 Cervical Cancer Screening: P ap Smear 02/04/2001 Depression Screening 07/31/2022 HIV Screening 07/31/2022 Hepatitis C Screening 07/31/2022 Social Influencers of Health Screening 07/31/2022 COVID-19 Vaccine (3 - 2023-2 5 season) 2024 02/09/2022, 01/12/2022 Influenza Vaccine (Season Ended) 2025 DTaP,Tdap,and Td Vaccines (2 - Td or Tdap) 04/04/2032 04/04/2022 HIB Vaccines Aged Out No longer eligi ble based on patient's age to complete this topic HPV Vaccines Aged Out No longer eligi ble based on patient's age to complete this topic Hepatitis A Vaccines Aged Out No long er eligible based on patient's age to complete this topic IPV Vaccines Aged Out No longer eligi ble based on patient's age to complete this topic MMR Vaccines Aged Out No longer eligi ble based on patient's age to complete this topic Meningococcal ACWY Vaccine Aged Out N o longer eligible based on patient's age to complete this topic Meningococcal B Vaccine Aged Out No l onger eligible based on patient's age to complete this topic RSV Immunization Patients Under 20 months Aged Out No longer eligible b ased on patient's age to complete this topic Varicella Vaccines Aged Out No longer eligible based on patient's age to complete this topic [place] [address] [address] [address] PLAN Care Teams Head Librarian Relationship Specialty Start Date End Date Akiko Guerra MD [address] [place] [address] PCP - General Internal Medicine 04/11/21
--- NOTE | 2024-12-11 08:01 | PC.NURSE ---
pt is alert and oriented, skin pwd, respirations even and unlabored, pt reports that started with a right sided headache yesterday around 1600, taking Excedrin not improving, pt denies light and noise sensitivity, denies nausea and vision disturbances , pt does report hx of migraines but has not had one for the last 6-7 years, offered to do a sars swab just to r/o but pt did not want one at this time-states i don't believe i have covid
[2024-12-11 08:10] VITALS: BP 111/56; PULSE 73; RESP 14; TEMP 37.1; O2SAT 98
[2024-12-11] MEDS: Butalb/Acetamin/Caff 50/325/40 TABLET 1 TAB PO (09:10)
[2024-12-11] MEDS: diphenhydrAMINE HCL 50 MG/ML VIAL 12.5 MG IVPUSH (09:15)
[2024-12-11] MEDS: Ketorolac Tromethamine 15 MG/ML VIAL IVPUSH (09:15)
[2024-12-11] MEDS: Metoclopramide HCl 10 MG/2 ML VIAL IVPUSH (09:15)
[2024-12-11 09:20] LABS: C Reactive Protein 0.53 mg/dL (< or = 0.50); Magnesium 1.7 mg/dL (1.6-2.6)
--- NOTE | 2024-12-11 09:25 | ED_ITS ---
HPI - Headache General Chief Complaint: Headache Stated Complaint: migraine Time Seen by Provider: 12/11/24 08:04 Source: patient, RN notes reviewed and old records reviewed Mode of arrival: ambulatory History of Present Illness ED Provider: Ashley Krishna PA-C HPI Narrative: 44-year-old female with no significant past medical history presenting to the ED complaining of right temporal headache since 1600 yesterday. Admits to taking OTC medications without relief. Reports history of migraines however not this severe. Denies other associated symptoms including neck/back pain, vision change or loss, nausea, vomiting, weakness, paresthesias, jaw pain. Denies pain exacerbated by eating, temperature or showers. Related Data Home Medications ?Medication ?Instructions ?Recorded ?Confirmed norethindrone-eth. estradiol-iron 1 tab PO DAILY 01/23/21 05/03/22 1-20 (5)/1-30(7)/1mg-35mcg(9) tablet (Tilia Fe) Previous Rx's ?Medication ?Instructions ?Recorded dicyclomine 20 mg tablet 20 mg PO QID PRN abdominal pain 01/23/21 #20 tabs ketorolac 10 mg tablet 10 mg PO Q6H PRN pain 5 days #20 12/30/21 tabs rnmjwxqczl-nhlpwkvinmynz-zwqhaipe 1 cap PO Q4-6H PRN headache #10 12/11/24 50 mg-300 mg-40 mg capsule caps (Fioricet) Allergies Allergy/AdvReac Type Severity Reaction Status Date / Time oxycodone Allergy Hives Verified 12/11/24 04:48 Review of Systems 2 Review of Systems: Yes all other systems are reviewed and are negative Constitutional: Constitutional: Reports as per [facility] Past Medical History Attestation statement: The following information was validated with the patient. Source: old records reviewed Medical History Fatigue No active medical problems Surgical History History of appendectomy Social History Social History Alcohol intake: never Smoked in Last 30 Days: No Use of substances other than those prescribed or required for medical reasons: No Substance Use Type: Hallucinogens and Marijuana Advance Directives: No Advance Directives Information Provided: Yes Do you have a plan to hurt others: No Plan Physical Exam 2 Vital Signs: Vital Signs: Last Vital Signs Temp 97.8 F 12/11/24 10:41 Pulse 70 12/11/24 10:41 Resp 14 12/11/24 10:41 BP 111/72 12/11/24 10:41 Pulse Ox 99 12/11/24 10:41 O2 Del Method Room Air 12/11/24 10:41 BMI result Body Mass Index 24.7 Const: General: cooperative, healthy appearing and no acute distress O rientation/consciousness: patient oriented x3 Limitations: no limitations HEENT: Head: Yes normal to inspection and Yes atraumatic Ears: hearing grossly normal bilaterally General nose exam: Normal external nose present Face and sinus: Yes normal facial exam Eyes: General: appearance normal, both eyes and all related structures EOM: EOMs intact bilaterally Neck: Neck: Yes normal visual inspection and Yes no meningeal signs Resp: Effort & Inspection: normal respiratory effort and no respiratory distress Auscultation: clear to auscultation bilaterally Cardio: Rate: regular rate Heart sounds: S1 normal heart sound present and S2 normal heart sound present GI: Inspection: Yes normal to inspection Palpation (GI): Soft to palpation, nontender, no guarding and not rigid : General: Yes no CVA tenderness Back/Spine/Pelvis: Back: no CVA tenderness Skin: Rashes: no rashes Wounds: no wounds Neuro: General: patient oriented x3, tone normal and no meningeal signs C ranial nerves: Yes CN's II-XII intact bilaterally Gait exam (Neuro): Normal gait present Extrem: General: Yes normal to inspection Course Course Course Narrative: - Labs reassuring. CRP minimally elevated to 0.53 > not consistent with giant cell arteritis - viral testing negative - head CT unremarkable > 1029- patient reports symptomatic improvement, denies headache at present. States Fioricet runs help symptoms. Requesting discharge home at this time. Recommended close PCP follow-up Results discussed with patient including worrisome signs and symptoms and strict return precautions, and when to return to the emergency department. They verbalized understanding and feel safe for discharge at this time. Medications Administered Discontinued Medications Generic Name Dose Route Start Last Admin Trade Name Freq PRN Reason Stop Dose Admin Acetaminophen/Butalbital/Caffeine 1 tab 12/11/24 08:52 12/11/24 09:10 Butalb/Acetamin/Caff 50/325/40 Tablet PO 12/11/24 08:53 1 tab ONCE ONE Administration Diphenhydramine HCl 12.5 mg 12/11/24 08:53 12/11/24 09:15 Diphenhydramine Hcl 50 Mg/Ml Vial IVPUSH 12/11/24 08:54 12.5 mg ONCE ONE Administration Ketorolac Tromethamine 15 mg 12/11/24 08:53 12/11/24 09:15 Ketorolac Tromethamine 15 Mg/Ml Vial IVPUSH 12/11/24 08:54 15 mg ONCE ONE Administration Metoclopramide HCl 10 mg 12/11/24 08:53 12/11/24 09:15 Metoclopramide Hcl 10 Mg/2 Ml Vial IVPUSH 12/11/24 08:54 10 mg ONCE ONE Administration Medical Decision Making Medical Decision Making MDM Narrative: 44-year-old female with no significant past medical history presenting to the ED complaining of right temporal headache since 1600 yesterday. on exam vital signs stable, NAD, nontoxic appearing, no focal neuro deficits. Concern for migraine headache vs ? giant cell arteritis. No evidence of otitis media / externa or mastoiditis. No evidence of intraoral pathology/ dental issues, DIRECTOR OF PLACEMENT or retropharyngeal abscess Plan: Labs, head CT, viral testing, p.o. Fioricet, re-evaluate Please refer to course for remaining clinical decision making, interpretation of labs/imaging results, and discussions with consultants and/or family members. Differential Diagnosis Differential Diagnoses: The differential diagnosis associated with the presentation includes As above Admission/Observation Consideration of admission/observation: Escalation of care including admission/observation considered Lab Data [facility] Lab Attestation statement: I reviewed the patient's lab results. 12/11/24 07:10 12/11/24 07:10 Labs: Lab Results 12/11/24 12/11/24 Range/Units 07:10 08:57 WBC 9.3 (4.8-10.8) X10*3/uL RBC 4.07 L (4.20-5.50) X10*6/uL Hgb 13.2 (12.0-16.0) g/dl Hct 38.8 (37.0-47.0) % MCV 95.3 (80.0-98.0) fL MCH 32.4 (27.0-33.0) pg MCHC 34.0 (31.0-35.0) g/dl RDW 12.2 (11.0-16.0) % Plt Count 340 (160-400) X10*3/uL MPV 9.0 L (9.4-12.3) fL Immature Gran % (Auto) 0.4 (0.0-0.4) % Neut % (Auto) 55.3 (45-73) % Lymph % (Auto) 36.2 (20-40) % Quay % (Auto) 5.9 (2-11) % Eos % (Auto) 1.7 (0-4) % Baso % (Auto) 0.5 (0-2) % Lymph # (Auto) 3.4 (1.2-4.9) X10*3/uL Quay # (Auto) 0.6 (0.1-1.2) X10*3/uL Eos # (Auto) 0.2 (0.0-0.4) X10*3/uL Baso # (Auto) 0.1 (0.0-0.2) X10*3/uL Abs Immat Gran (auto) 0.04 H (0.00-0.03) X10*3/uL Absolute Neuts (auto) 5.2 (2.0-8.3) x10*3/uL Absolute Nucleated RBC 0.000 (0.0-0.012) X10*3/uL Nucleated RBC % (auto) 0.0 (0.0-0.2) /100WBC ESR 8 (0-20) MM/HR Sodium 138 (135-145) mmol/L Potassium 4.0 (3.3-5.1) mmol/L Chloride 106 (96-108) mmol/L Carbon Dioxide 23 (22-29) mmol/L Anion Gap 13 (12-20) BUN 14 (9-16) mg/dL Creatinine 0.69 (0.5-1.4) mg/dL Estim Creat Clear Calc 89.8 Estimated GFR > 60 Random Glucose 110 (60-115) mg/dL Calcium 9.1 (8.4-10.2) mg/dL Magnesium 1.7 (1.6-2.6) mg/dL Total Bilirubin 0.2 (0.0-1.0) mg/dL AST 17 (5-31) U/L ALT 16 (0-31) U/L Alkaline Phosphatase 45 (39-117) U/L C-Reactive Protein 0.53 H (< or = 0.50) mg/dL Total Protein 6.9 (6.5-8.0) g/dL Albumin 4.0 (3.5-5.0) g/dL Influenza Type A (PCR) NEGATIVE (Negative) Influenza Type B (PCR) NEGATIVE (Negative) RSV RNA Qual (PCR) NEGATIVE (Negative) SARS-CoV-2 RNA (RT-PCR) NEGATIVE (Negative) Independent Interpretation I performed an independent interpretation of an: CT Scan Radiology Impression Discussion of test interpretation with radiology: I have reviewed the radiologist's reading. External Record Review External record reviewed: Inpatient record, Office record, Outpatient record, Prior outpatient labs, Prior outpatient radiology, Primary care record and Outside ED record Tests considered The following testing was considered but not selected: As above Prescription Management I considered prescription management with: Pain Medication Chronic Conditions Patient?s care impacted by: Other Social Determinants Patient?s care significantly limited by Social Determinants of Health including: Other Social Determinant of Health Discharge Plan Discharge Clinical Impression: Headache Patient Disposition: Home, Self-Care Instructions: Acute Headache (DC) Additional Instructions: your blood work, cat scan, and viral testing were reassuring Fioricet is a combination headache medication, please take as needed for headache. Be aware this has Tylenol mixed in, do not exceed 4 g of Tylenol 1 day Follow up with her doctor If her symptoms persist or worsen, headache is constant/worsening, you have weakness, nausea, vomiting, visual changes return to the ED You may also take Motrin/ ibuprofen in addition to Fioricet Prescriptions: New cyvizzqwzm-tpfbhsbxnvalk-gzxw [Fioricet] 50-300-40 mg capsule 1 cap PO Q4-6H PRN (Reason: headache) Qty: 10 0RF No Action Tilia Fe 1-20(5)/1-30(7) /1mg-35mcg (9) tablet 1 tab PO DAILY dicyclomine 20 mg tablet 20 mg PO QID PRN (Reason: abdominal pain) Qty: 20 0RF ketorolac 10 mg tablet 10 mg PO Q6H PRN (Reason: pain) 5 Days Qty: 20 0RF Rx Instructions: Patient received Toradol in the emergency room Referrals: Physician,Juju J [Primary Care Provider] - 1 week Stand Alone Forms: Work/School Release Interventions: ED Discharge Assessment Last Done: 12/11/24 10:41 Discharge Date/Time: 12/11/24 10:41 Print Language: Kyrgyz
[2024-12-11 09:51] LABS: Erythrocyte Sedimentation Rate 8 MM/HR (0-20)
[2024-12-11 09:54] LABS: Influenza A PCR NEGATIVE (Negative); Influenza B PCR NEGATIVE (Negative); Resp Syncy Virus RNA Qual PCR NEGATIVE (Negative); SARS COV2 PCR INHOUSE NEGATIVE (Negative)
[2024-12-11 10:05] VITALS: BP 111/72; PULSE 70; RESP 14; TEMP 36.6; O2SAT 99
[2024-12-11 10:41] VITALS: BP 111/72; PULSE 70; RESP 14; TEMP 36.6; O2SAT 99
== END 2024-12-11 10:41 | disposition home or self-care (01) ==
PROVIDERS: Physician Assistant; Emergency Provider Emergency Medicine Emergency Medical Services
DX: R51.9 Headache, unspecified (principal); Z79.899 Other long term (current) drug therapy; Z03.818 Encounter for observation for suspected exposure to other biological agents ruled out
CPT/HCPCS: 0241U; 36415; 70450; 80053; 83735; 85025; 85652; 86140; 96374; 96375; 99284; J1200; J1885; J2765

== ENCOUNTER → 2024-12-11 05:04 | Outpatient (BNV) | payer OTHER, SELFPAY | PROVIDERS: Visit Provider Radiology Vascular & Interventional Radiology | DX: R51.9 Headache, unspecified (principal) | CPT/HCPCS: 70450 ==

== ENCOUNTER 2025-06-06 16:40 | Emergency (ER) | payer OTHER, SELFPAY ==
--- NOTE | 2025-06-06 | ECG_ITS ---
Test Reason : tachy Blood Pressure : */* mmHG Vent. Rate : 123 BPM Atrial Rate : 123 BPM P-R Int : 138 ms QRS Dur : 86 ms QT Int : 296 ms P-R-T Axes : 72 88 51 degrees QTcB Int : 423 ms Sinus tachycardia Nonspecific T wave abnormality Abnormal ECG No previous ECGs available Referred By: Generic ED Physician Electronically Signed By: ORIANA JOSEPH MD
--- NOTE | ~2025-06-06 | XR_ITS ---
CLINICAL HISTORY: chest tightness Chest Radiograph Comparison: None available Findings: No cardiomegaly. Normal mediastinal contours. No pneumothorax. No opacity. No pleural effusion. Normal upper abdomen. No acute fracture. Impression: No acute findings. This document has been electronically signed by: Yajaira Cárdenas MD on 06/06/2025 17:58:00
[2025-06-06 17:10] VITALS: BP 158/69; PULSE 105; RESP 18; TEMP 36.3; O2SAT 100; BMI 26.1
--- NOTE | 2025-06-06 17:10 | ED.GENADULT ---
HPI - General Adult General Chief complaint: ETOH/Substance Use Stated complaint: SOB, pulse 160 Time Seen by Provider: 06/06/25 20:11 Source: patient Limitations: no limitations History of Present Illness ED Provider: Soraida Be PA-C HPI narrative: 45-year-old female with a history of substance abuse, alcohol use disorder, who presents with palpitations. Patient admits to relapsing last night. She consumed 5 beers, and use 2 g of cocaine. Patient in turn developed elevated heart rate, she noted her pulse to be 160. Denies chest pain, shortness of breath. She is asymptomatic at this time. Patient declines detox. Related Data Home Medications ?Medication ?Instructions ?Recorded ?Confirmed norethindrone-eth. estradiol-iron 1 tab PO DAILY 01/23/21 05/03/22 1-20 (5)/1-30(7)/1mg-35mcg(9) tablet (Tilia Fe) Previous Rx's ?Medication ?Instructions ?Recorded dicyclomine 20 mg tablet 20 mg PO QID PRN abdominal pain 01/23/21 #20 tabs ketorolac 10 mg tablet 10 mg PO Q6H PRN pain 5 days #20 12/30/21 tabs udwovnjfee-qblfppjqbsnrd-ogwjnemy 1 cap PO Q4-6H PRN headache #10 12/11/24 50 mg-300 mg-40 mg capsule caps (Fioricet) Allergies Allergy/AdvReac Type Severity Reaction Status Date / Time oxycodone Allergy Hives Verified 06/06/25 17:13 Review of Systems Review of Systems: Yes all other systems are reviewed and are negative Constitutional: Constitutional: Denies fatigue, Denies fever(s) and Denies headache(s) ENT: Denies dizziness and Denies headache(s) Cardiovascular: Cardiovascular: Denies chest pain, Denies syncope, Reports palpitations and Denies dyspnea Respiratory: Respiratory: Denies dyspnea Gastrointestinal: Gastrointestinal: Denies abdominal pain, Denies nausea and Denies vomiting Neurologic: Denies dizziness, Denies syncope and Denies headache(s) Endocrine: Endocrine: Denies fatigue and Reports palpitations PMFSH Past Medical History Attestation statement: The following information was validated with the patient. Medical History Fatigue No active medical problems Surgical History History of appendectomy Social History Social History Alcohol intake: current Alcohol intake frequency: holidays/special occasions only Smoked in Last 30 Days: No Use of substances other than those prescribed or required for medical reasons: Yes Substance Use Type: Crack/Cocaine Advance Directives: No Advance Directives Information Provided: No Do you have a plan to hurt others: No Plan Patient : No Physical Exam ED Vital Signs: Vital Signs - 24 hr 06/06/25 17:10 06/06/25 20:04 Temperature 97.4 F 98.4 F Pulse Rate 105 H 84 Respiratory Rate 18 18 Blood Pressure 158/69 H 145/44 H Pulse Oximetry 100 99 Oxygen Delivery Method Room Air Room Air BMI result Body Mass Index 26.1 Const Other: Alert well-appearing Orientation/consciousness: patient oriented x3 Resp Effort & Inspection: normal respiratory effort Cardio Other: Normal peripheral perfusion Skin Other: Warm dry no rash Neuro General: patient oriented x3, gait normal, no focal motor deficits and CN's II-XI intact bilaterally Psych Other: Cooperative Course Course Course Narrative: This is an RME done by SOURAV Perez: Additional HPI, ROS, PE not included below will be deferred to primary provider. 45 year old female presents w/ palpitations after using 2G of cocaine last night. Prior to last night she last used about a year ago. Also reports she drank alcohol last night around 5 beers. She feels strange today. Medical Decision Making Medical Decision Making MDM Narrative: 45-year-old female with a history of substance abuse, alcohol use disorder, who presents with palpitations. Patient admits to relapsing last night. She consumed 5 beers, and use 2 g of cocaine. Patient in turn developed elevated heart rate, she noted her pulse to be 160. Denies chest pain, shortness of breath. She is asymptomatic at this time. Patient declines detox. Problem: Prior substance abuse, alcohol use disorder History: Per patient I have considered the following differential diagnoses: Palpitations, ACS, anemia, dehydration, electrolyte abnormality Plan: Clearly, the cocaine likely induced her palpitations. Thus far her assessment is negative. Screening labs were obtained to rule out potential underlying organic causes that could have contributed to her symptoms; i.e. anemia, electrolyte abnormality, dehydration. Troponin was ordered as well. The patient is not interested in detox, she states she simply relapsed. I have independently reviewed the following tests: Labs: Slight leukocytosis, not anemic, no electrolyte abnormality, troponin less than 2.7, not , ethanol less than 10 EKG: Sinus tachycardia, rate of 123, no ischemic changes no ectopy QTC 423 Differential Diagnosis Differential Diagnoses: The differential diagnosis associated with the presentation includes See medical decision-making Admission/Observation Consideration of admission/observation: Escalation of care including admission/observation considered Not applicable Lab Data MDM Lab Attestation statement: I reviewed the patient's lab results. 06/06/25 17:18 06/06/25 17:18 Labs: Lab Results 06/06/25 Range/Units 17:18 WBC 15.1 H (4.8-10.8) X10*3/uL RBC 3.80 L (4.20-5.50) X10*6/uL Hgb 12.6 (12.0-16.0) g/dl Hct 34.8 L (37.0-47.0) % MCV 91.6 (80.0-98.0) fL MCH 33.2 H (27.0-33.0) pg MCHC 36.2 H (31.0-35.0) g/dl RDW 11.9 (11.0-16.0) % Plt Count 374 (160-400) X10*3/uL MPV 8.5 L (9.4-12.3) fL Immature Gran % (Auto) 0.5 H (0.0-0.4) % Neut % (Auto) 70.2 (45-73) % Lymph % (Auto) 23.4 (20-40) % [place] % (Auto) 4.5 (2-11) % Eos % (Auto) 1.2 (0-4) % Baso % (Auto) 0.2 (0-2) % Lymph # (Auto) 3.5 (1.2-4.9) X10*3/uL [place] # (Auto) 0.7 (0.1-1.2) X10*3/uL Eos # (Auto) 0.2 (0.0-0.4) X10*3/uL Baso # (Auto) 0.0 (0.0-0.2) X10*3/uL Abs Immat Gran (auto) 0.07 H (0.00-0.03) X10*3/uL Absolute Neuts (auto) 10.6 H (2.0-8.3) x10*3/uL Absolute Nucleated RBC 0.000 (0.0-0.012) X10*3/uL Nucleated RBC % (auto) 0.0 (0.0-0.2) /100WBC PT 11.2 (10.9-12.4) SEC INR 1.0 (0.9-1.1) Sodium 134 L (135-145) mmol/L Potassium 3.7 (3.3-5.1) mmol/L Chloride 101 (96-108) mmol/L Carbon Dioxide 22 (22-29) mmol/L Anion Gap 15 (12-20) BUN 7 L (9-16) mg/dL Creatinine 0.74 (0.5-1.4) mg/dL Estim Creat Clear Calc 91.5 Estimated GFR > 60 Random Glucose 120 H (60-115) mg/dL Calcium 9.5 (8.4-10.2) mg/dL Magnesium 1.6 (1.6-2.6) mg/dL Total Bilirubin 0.4 (0.0-1.0) mg/dL AST 19 (5-31) U/L ALT 21 (0-31) U/L Alkaline Phosphatase 52 (39-117) U/L Troponin I High Sens < 2.7 (<3.5-17.0) ng/L Total Protein 7.4 (6.5-8.0) g/dL Albumin 4.7 (3.5-5.0) g/dL Beta HCG, Quant < 2 mIU/mL Ethyl Alcohol < 10 mg/dL Discharge Plan Discharge Clinical Impression: Heart palpitations Patient Disposition: Home, Self-Care Instructions: Heart Palpitations (ED) Additional Instructions: All of your screening labs including a cardiac enzymes were overall normal. Your heart rate was subtly elevated on the EKG, but then normalized. The use of the cocaine is the likely trigger for the palpitations. If you continue to experience palpitations, you need to follow up with your primary care provider for a Holter monitor trial, to determine if you truly have an abnormal rhythm of the heart. Call to schedule an appointment. Prescriptions: No Action Tilia Fe 1-20(5)/1-30(7) /1mg-35mcg (9) tablet 1 tab PO DAILY dicyclomine 20 mg tablet 20 mg PO QID PRN (Reason: abdominal pain) Qty: 20 0RF ketorolac 10 mg tablet 10 mg PO Q6H PRN (Reason: pain) 5 Days Qty: 20 0RF Rx Instructions: Patient received Toradol in the emergency room [id number] [Fioricet] 50-300-40 mg capsule 1 cap PO Q4-6H PRN (Reason: headache) Qty: 10 0RF Print Language: [place]
[2025-06-06 17:32] LABS: MANUAL DIFF FLAG NO
[2025-06-06 17:34] LABS: Hematocrit 34.8 % (37.0-47.0); Hemoglobin 12.6 g/dl (12.0-16.0); Imm Gran Abs Auto 0.07 X10*3/uL (0.00-0.03); Imm Gran Pct Auto 0.5 % (0.0-0.4); Lymphocytes Absolute Auto 3.5 X10*3/uL (1.2-4.9); Mean Corpuscular HGB Conc 36.2 g/dl (31.0-35.0); Mean Corpuscular Hemoglobin 33.2 pg (27.0-33.0); Mean Corpuscular Volume 91.6 fL (80.0-98.0); NRBC Abs Auto 0.000 X10*3/uL (0.0-0.012); NRBC Pct Auto 0.0 /100WBC (0.0-0.2); Platelet Count 374 X10*3/uL (160-400); Red Blood Count 3.80 X10*6/uL (4.20-5.50); White Blood Count 15.1 X10*3/uL (4.8-10.8)
[2025-06-06 17:39] LABS: INTERNATIONAL NORM RATIO 1.0 (0.9-1.1); Prothrombin Time 11.2 SEC (10.9-12.4)
[2025-06-06 17:50] LABS: Alanine Aminotransferase 21 U/L (0-31); Albumin Level 4.7 g/dL (3.5-5.0); Alkaline Phosphatase 52 U/L (39-117); Anion Gap 15 (12-20); Aspartate Amino Transferase 19 U/L (5-31); Blood Urea Nitrogen 7 mg/dL (9-16); Calcium 9.5 mg/dL (8.4-10.2); Carbon Dioxide 22 mmol/L (22-29); Chloride 101 mmol/L (96-108); Creatinine Clr Calc Pharmacy 91.5; Estimated Glomerular Filt Rate > 60; Magnesium 1.6 mg/dL (1.6-2.6); Potassium 3.7 mmol/L (3.3-5.1); Sodium 134 mmol/L (135-145); Total Protein 7.4 g/dL (6.5-8.0)
[2025-06-06 18:00] LABS: Troponin-I High Sensitivity < 2.7 ng/L (<3.5-17.0)
[2025-06-06 20:04] VITALS: BP 145/44; PULSE 84; RESP 18; TEMP 36.9; O2SAT 99
[2025-06-06 21:05] VITALS: BP 116/48; PULSE 76; RESP 16; TEMP 36.7; O2SAT 100
[2025-06-06 21:06] VITALS: BP 116/48; PULSE 76; RESP 16; TEMP 36.7; O2SAT 100
== END 2025-06-06 21:07 | disposition home or self-care (01) ==
PROVIDERS: Physician Assistant; Physician Assistant Medical; Emergency Provider Emergency Medicine; PCP Internal Medicine
DX: R00.2 Palpitations (principal); F10.129 Alcohol abuse with intoxication, unspecified; Y90.0 Blood alcohol level of less than 20 mg/100 ml; R00.0 Tachycardia, unspecified; Z79.899 Other long term (current) drug therapy
CPT/HCPCS: 36415; 71045; 80053; 80307; 83735; 84484; 84702; 85025; 85610; 93005; 99283; 99284

== ENCOUNTER → 2025-06-06 16:48 | Outpatient (BNV) | payer OTHER, SELFPAY | PROVIDERS: Emergency Provider Emergency Medicine; PCP Internal Medicine; Visit Provider Internal Medicine Cardiovascular Disease | DX: R00.0 Tachycardia, unspecified (principal) | CPT/HCPCS: 93010 ==

== ENCOUNTER → 2025-06-06 17:11 | Outpatient (BNV) | payer OTHER, SELFPAY | PROVIDERS: PCP Internal Medicine; Visit Provider Radiology Diagnostic Radiology | DX: R07.89 Other chest pain (principal) | CPT/HCPCS: 71045 ==